=== PATIENT | male | born 1985 | race African-American/Black ===

== ENCOUNTER 2017-06-17 03:13 | Inpatient (IN) | payer OTHER ==
[2017-06-17] MEDS ORDERED: LORAZEPAM INJ 2 MG/ML VIAL ONE ×7 (03:22→20:32)
[2017-06-17] MEDS ORDERED: OLANZAPINE 10 MG VIAL IM ONE ×4 (03:22→10:00)
[2017-06-17] MEDS ORDERED: WATER FOR INJECTION,STERILE 10 ML ONE (03:22)
[2017-06-17] MEDS ORDERED: IV NS 0.9% 1,000 ML BAG IV ONE ×2 (03:30→23:00)
[2017-06-17] MEDS ORDERED: LORAZEPAM INJ 2 MG/ML VIAL IVP ONE (03:30)
[2017-06-17] MEDS ORDERED: LORAZEPAM INJ 2 MG/ML VIAL IM ONE ×4 (04:00→20:30)
[2017-06-17] MEDS ORDERED: LIDOCAINE 2% JEL UROJET 10 ML MM ONE ×2 (05:56→06:00)
[2017-06-17] MEDS ORDERED: diphenhydrAMINE HCL 50 MG/ML VIAL ONE ×3 (09:55→20:32)
[2017-06-17] MEDS ORDERED: diphenhydrAMINE HCL 50 MG/ML VIAL IM ONE ×2 (10:00→20:30)
[2017-06-17] MEDS ORDERED: LORAZEPAM INJ 2 MG/ML VIAL IM/IV ONE (13:30)
[2017-06-17] MEDS ORDERED: HALOPERIDOL LACTATE INJ 5 MG/ML VIAL IM ONE ×2 (15:30→20:30)
[2017-06-17] MEDS ORDERED: LORAZEPAM INJ 2 MG/ML VIAL IV ONE (15:30)
[2017-06-17] MEDS ORDERED: diphenhydrAMINE HCL 50 MG/ML VIAL IV ONE (15:30)
[2017-06-17] MEDS ORDERED: HALOPERIDOL LACTATE INJ 5 MG/ML VIAL ONE ×2 (16:00→20:32)
[2017-06-17] MEDS ORDERED: IV PREMIX D5 1/2NS + KCL 1,000 ML IV ONE ×2 (22:46→23:54)
[2017-06-18] MEDS ORDERED: OLANZAPINE 10 MG VIAL IM ONE ×3 (01:31→02:01)
[2017-06-18] MEDS ORDERED: LORAZEPAM INJ 2 MG/ML VIAL ONE ×4 (01:31→10:05)
[2017-06-18] MEDS ORDERED: LORAZEPAM INJ 2 MG/ML VIAL IV ONE ×4 (02:00→10:30)
[2017-06-18] MEDS ORDERED: diphenhydrAMINE HCL 50 MG/ML VIAL ONE ×2 (06:21→22:08)
[2017-06-18] MEDS ORDERED: ZIPRASIDONE MESYLATE 20 MG/VIAL VIAL IM ONE ×4 (06:21→22:30)
[2017-06-18] MEDS ORDERED: diphenhydrAMINE HCL 50 MG/ML VIAL IM ONE ×2 (06:30→22:30)
[2017-06-19] MEDS ORDERED: HYDROCODONE/APAP 5/325MG 1 EACH TABLET PO PRN (01:30)
[2017-06-19] MEDS ORDERED: MAGNESIUM HYDROXIDE 30 ML UDC PO PRN (01:30)
[2017-06-19] MEDS ORDERED: Z GUARD REMEDY 2 OZ OINT TP PRN (01:30)
[2017-06-19] MEDS ORDERED: ZOLPIDEM TARTRATE 5 MG TABLET PO PRN (01:30)
[2017-06-19] MEDS ORDERED: ACETAMINOPHEN 325 MG TABLET PO PRN (01:30)
[2017-06-19] MEDS ORDERED: MAG HYDROX/AL HYDROX/SIMETH 30 ML UDC PO PRN (01:30)
[2017-06-19] MEDS ORDERED: ONDANSETRON HCL/PF 4 MG/2 ML VIAL IVP PRN (01:30)
[2017-06-19] MEDS: IV NS 0.9% 1,000 ML IV PRN ×4 (03:31→23:23)
[2017-06-19] MEDS ORDERED: HALOPERIDOL LACTATE INJ 5 MG/ML VIAL ONE ×2 (05:18→06:11)
[2017-06-19] MEDS ORDERED: HALOPERIDOL LACTATE INJ 5 MG/ML VIAL IM ONE ×3 (06:00→15:30)
[2017-06-19] MEDS ORDERED: diphenhydrAMINE HCL 50 MG/ML VIAL ONE (06:10)
[2017-06-19] MEDS ORDERED: diphenhydrAMINE HCL 50 MG/ML VIAL IV ONE (06:30)
[2017-06-19] MEDS: PANTOPRAZOLE 40 MG TABLET.DR PO SCH (07:30)
[2017-06-19] MEDS ORDERED: diphenhydrAMINE HCL 50 MG/ML VIAL IM ONE (15:30)
[2017-06-19] MEDS: QUETIAPINE FUMARATE 100 MG TABLET PO SCH ×2 (16:38→20:12)
[2017-06-19] MEDS: HALOPERIDOL LACTATE INJ 5 MG/ML VIAL IM PRN (21:07)
[2017-06-19] MEDS: diphenhydrAMINE HCL 50 MG/ML VIAL IM PRN (21:07)
[2017-06-20] MEDS: HALOPERIDOL LACTATE INJ 5 MG/ML VIAL IM PRN ×2 (04:32→11:17)
[2017-06-20] MEDS: diphenhydrAMINE HCL 50 MG/ML VIAL IM PRN ×2 (04:32→11:17)
[2017-06-20] MEDS: IV NS 0.9% 1,000 ML IV PRN (05:47)
[2017-06-20] MEDS: QUETIAPINE FUMARATE 100 MG TABLET PO SCH ×2 (09:00→14:09)
[2017-06-20] MEDS: PANTOPRAZOLE 40 MG TABLET.DR PO SCH (09:00)
[2017-06-20] MEDS ORDERED: IV 1/2NS 1000 ML 1,000 ML IV PRN (10:00)
== END 2017-06-20 14:55 | disposition left against medical advice (07) | DRG 351 ==
DX: M62.82 Rhabdomyolysis (principal); G93.41 Metabolic encephalopathy; E44.0 Moderate protein-calorie malnutrition; E87.6 Hypokalemia; F29 Unspecified psychosis not due to a substance or known physiological condition; E66.9 Obesity, unspecified; E87.8 Other disorders of electrolyte and fluid balance, not elsewhere classified; F25.0 Schizoaffective disorder, bipolar type; F12.159 Cannabis abuse with psychotic disorder, unspecified

== ENCOUNTER 2019-12-06 00:31 | Emergency (ER) | payer MEDICAID, OTHER ==
[~2019-12-06] VITALS: Ht 193 cm; Wt 108.9 kg
[2019-12-06 00:44] VITALS: BP 152/92
[2019-12-06] MEDS ORDERED: KETOROLAC TROMETHAMINE INJ 60 MG/2 ML VIAL IM ONE (00:51)
--- NOTE | 2019-12-06 00:52 | NUR ---
SANDWICH AND JUICE PROVIDED TO PATIENT
[2019-12-06] MEDS: KETOROLAC TROMETHAMINE INJ 60 MG/2 ML VIAL IM ONE (00:57)
== END 2019-12-06 01:19 | disposition home or self-care (01) ==
LOC: ER 00:32
DX: M92.51 Juvenile osteochondrosis of proximal tibia (principal); F20.9 Schizophrenia, unspecified; F31.9 Bipolar disorder, unspecified; F17.200 Nicotine dependence, unspecified, uncomplicated; Z98.890 Other specified postprocedural states; Z59.0 Homelessness
CPT/HCPCS: J1885

== ENCOUNTER 2020-09-15 09:51 | Emergency (ER) | payer OTHER, MEDICAID ==
[~2020-09-15] VITALS: Ht 193 cm; Wt 117.5 kg
[2020-09-15] MEDS ORDERED: HALOPERIDOL LACTATE INJ 5 MG/ML VIAL ONE (09:59)
[2020-09-15] MEDS ORDERED: diphenhydrAMINE HCL 50 MG/ML VIAL ONE (09:59)
[2020-09-15] MEDS ORDERED: diphenhydrAMINE HCL 50 MG/ML VIAL IM ONE (10:00)
[2020-09-15] MEDS ORDERED: HALOPERIDOL LACTATE INJ 5 MG/ML VIAL IM ONE (10:00)
[2020-09-15] MEDS ORDERED: LORAZEPAM INJ 2 MG/ML VIAL ONE (10:00)
[2020-09-15] MEDS ORDERED: LORAZEPAM INJ 2 MG/ML VIAL IM ONE (10:00)
[2020-09-15 11:40] VITALS: BP 151/34
== END 2020-09-15 11:43 | disposition home or self-care (01) ==
LOC: ER 09:53
DX: M25.531 Pain in right wrist (principal); Z02.89 Encounter for other administrative examinations; Z98.890 Other specified postprocedural states; Z59.0 Homelessness; Z79.899 Other long term (current) drug therapy
CPT/HCPCS: 73100; 96372 ×2; 99284; J1200; J1630; J2060

== ENCOUNTER 2021-04-24 12:06 | Emergency (ER) | payer MEDICAID, OTHER ==
[~2021-04-24] VITALS: Ht 190.5 cm; Wt 117.9 kg
[2021-04-24 12:13] VITALS: BP 152/77
--- NOTE | 2021-04-24 12:18 | NUR ---
SEEN AND EXAMINED BY .
--- NOTE | 2021-04-24 12:20 | NUR ---
DIRECTOR OF DATABASE MARKETING AT BEDSIDE FOR XRAY.
--- NOTE | 2021-04-24 12:49 | NUR ---
Patient given written and verbal discharge instructions. Patient verbalizes understanding of instructions. Patient is ambulatory with steady gait. Refuses offer of skilled nursing placement. Patient given list of available shelters in surrounding area.
== END 2021-04-24 12:51 | disposition home or self-care (01) ==
LOC: ER 12:08
DX: S90.32XA Contusion of left foot, initial encounter (principal); F20.9 Schizophrenia, unspecified; F31.9 Bipolar disorder, unspecified; F12.90 Cannabis use, unspecified, uncomplicated; Z98.890 Other specified postprocedural states; Z59.0 Homelessness; V09.9XXA Pedestrian injured in unspecified transport accident, initial encounter; Y93.89 Activity, other specified; Y92.89 Other specified places as the place of occurrence of the external cause; Y99.8 Other external cause status
CPT/HCPCS: 73630-TC

== ENCOUNTER 2022-07-20 09:40 | Emergency (ER) | payer MEDICAID, OTHER ==
[~2022-07-20] VITALS: Ht 190.5 cm; Wt 145.1 kg
[2022-07-20] MEDS ORDERED: IBUPROFEN 600 MG TABLET ONE (10:28)
[2022-07-20] MEDS ORDERED: IBUPROFEN 600 MG TABLET PO ONE (10:30)
--- NOTE | 2022-07-20 12:00 | NUR ---
pt seen by dr españa at bedside
--- NOTE | 2022-07-20 12:15 | NUR ---
Patient discharged to [facility] enforcement in stable condition, accompanied by 2 Dash. Written and verbal after care instructions given. Patient verbalizes understanding of instruction. Cleared for booking per MD.
[2022-07-20 12:17] VITALS: BP 138/90
== END 2022-07-20 12:17 ==
LOC: ER 09:40
DX: M79.89 Other specified soft tissue disorders (principal); M79.644 Pain in right finger(s); F31.9 Bipolar disorder, unspecified; F20.9 Schizophrenia, unspecified; F12.90 Cannabis use, unspecified, uncomplicated; Z98.890 Other specified postprocedural states; Z59.00 Homelessness unspecified